=== PATIENT | female | born 1955 | race Caucasian/White ===

== ENCOUNTER 2018-06-12 10:10 | Emergency (ER) | payer OTHER ==
[2018-06-12 10:49] LABS: #Eosinphils 0.3 thou/uL (0.0-0.7); #Lymphocytes 2.1 thou/uL (1.20-3.40); #Monocytes 0.5 thou/uL (0.11-0.59); #Neutrophils 4.1 thou/uL (1.40-6.50); %Basophils 0.5 % (0.0-1.0); %Eosinophils 4.7 % (0.0-10.0); %Lymphocytes 29.8 % (21.0-51.0); %Neutrophils 58.1 % (42.0-75.0); Hemoglobin 12.3 g/dL (12.0-16.0); Mean Corpuscular HGB CONC 32.7 g/dL (32.0-36.0); Mean Corpuscular Hemoglobin 27.6 pg (27.0-31.0); Mean Corpuscular Volume 84.4 fL (78.0-98.0); Mean Platelet Volume 7.2 fL (7.4-10.4); Platelet Count 345 thou/uL (130-400); RBC Distribution Width 13.3 % (11.5-14.5); Red Blood Cell (RBC) Count 4.47 mill/uL (4.20-5.40)
[2018-06-12 11:24] LABS: ALT (SGPT) Less than 7 U/L (8-55); AST (SGOT) 14 U/L (5-34); Albumin 3.7 g/dL (3.5-5.0); Alkaline Phosphatase 85 U/L (40-150); Anion Gap 12 mmol/L (10-20); BUN (Urea Nitrogen) 9 mg/dL (9.8-20.1); Bilirubin, Total 0.2 mg/dL (0.2-1.2); Calc. Creatinine Clearance 0 mL/min (70-130); Calcium 9.4 mg/dL (7.8-10.44); Carbon Dioxide 25 mmol/L (22-29); Chloride 106 mmol/L (98-107); Estimated GFR-MDRD 66; Globulin 4.1 g/dL (2.4-3.5); Glucose 94 mg/dL (70-105); Potassium 3.2 mmol/L (3.5-5.1); Protein, Total 7.8 g/dL (6.0-8.3); Sodium 140 mmol/L (136-145)
--- NOTE | 2018-06-12 11:34 | RAD ---
PORTABLE CHEST ONE VIEW: Date: 06-12-18 Time: 10:41 a.m. History: Bilateral feet swelling. Chest pain. FINDINGS: Comparison is made with 03-20-16. There is continued elevation of the left hemidiaphragm. The heart size is normal. No focal areas of c onsolidation, pneumothoraces or pleural effusions are seen. IMPRESSION: No radiographic evidence of acute cardiopulmonary process. POS: [facility]
[2018-06-12] MEDS ORDERED: Furosemide 40 MG TAB ONE (12:03)
--- NOTE | 2018-06-15 13:25 | EKG ---
Test Reason : BILAT LE SWELLING Blood Pressure : / mmHG Vent. Rate : 088 BPM Atrial Rate : 088 BPM P-R Int : 140 ms QRS Dur : 074 ms QT Int : 326 ms P-R-T Axes : 036 007 055 degrees QTc Int : 394 ms Normal sinus rhythm Nonspecific ST abnormality Abnormal ECG Confirmed by BRIGIDO QUINTANILLA ([id number]), technical writer and editor KAYLEE GARCÍA ([id number] on 06/15/2018 1:24:26 PM Referred By: SOCORRO Confirmed By:BRIGIDO QUINTANILLA
== END 2018-06-12 12:16 | disposition home or self-care (01) ==
LOC: ERS 10:10
DX: R60.0 Localized edema (principal); F17.210 Nicotine dependence, cigarettes, uncomplicated; N63.0 Unspecified lump in unspecified breast
CPT/HCPCS: 36415; 71045; 80053; 83880; 85025; 93005

== ENCOUNTER 2019-05-14 19:56 | Inpatient (IN) | payer OTHER ==
[~2019-05-14 19:56] MED LIST: ISOVUE-370 76%-LOCM 1 ML ONE
[2019-05-14] MEDS ORDERED: Ondansetron PF 4 MG/2 ML Vial ONE (21:23)
[2019-05-14] MEDS ORDERED: Morphine 4 MG/ML VIAL ONE (21:23)
[2019-05-14 21:29] LABS: #Eosinphils 0.1 thou/uL (0.0-0.7); #Lymphocytes 1.9 thou/uL (1.20-3.40); #Monocytes 0.5 thou/uL (0.11-0.59); #Neutrophils 5.6 thou/uL (1.40-6.50); %Basophils 0.2 % (0.0-1.0); %Lymphocytes 23.2 % (21.0-51.0); %Monocytes 5.7 % (0.0-10.0); %Neutrophils 69.8 % (42.0-75.0); Hemoglobin 12.7 g/dL (12.0-16.0); Mean Corpuscular HGB CONC 33.6 g/dL (32.0-36.0); Mean Corpuscular Hemoglobin 29.7 pg (27.0-31.0); Mean Corpuscular Volume 88.3 fL (78.0-98.0); Mean Platelet Volume 7.2 fL (7.4-10.4); Platelet Count 173 thou/uL (130-400); RBC Distribution Width 15.5 % (11.5-14.5); Red Blood Cell (RBC) Count 4.28 mill/uL (4.20-5.40)
--- NOTE | 2019-05-14 21:33 | RAD ---
Chest one view HISTORY: Chest pain. COMPARISON: 06/12/2018. FINDINGS: Cardiac silhouette is magnified by projection. Left hemidiaphragm is elevated with atelecta sis at the left lung base. Patient is slightly rotated rightward. Calcification within the aorta. Left internal jugular Port-A-Cath. No lobar consolidation or evidence of pneumothorax. IMPRESSION: Mild left basilar atelectasis. No active cardiopulmonary abnormalities are reliably demon strated. Atherosclerosis.
[2019-05-14 21:50] LABS: ALT (SGPT) 29 U/L (8-55); AST (SGOT) 26 U/L (5-34); Albumin 4.2 g/dL (3.4-4.8); Alkaline Phosphatase 85 U/L (40-150); Anion Gap 16 mmol/L (10-20); BUN (Urea Nitrogen) 11 mg/dL (9.8-20.1); Bilirubin, Total 0.4 mg/dL (0.2-1.2); CK (CPK) 70 U/L (29-168); Calc. Creatinine Clearance 0 mL/min (70-130); Calcium 9.6 mg/dL (7.8-10.44); Carbon Dioxide 22 mmol/L (23-31); Chloride 104 mmol/L (98-107); Estimated GFR-MDRD 56; Glucose 111 mg/dL (80-115); Potassium 3.8 mmol/L (3.5-5.1); Protein, Total 7.2 g/dL (6.0-8.3); Sodium 138 mmol/L (136-145)
[2019-05-14] MEDS ORDERED: Fentanyl 100 MCG/2 ML VIAL ONE (22:56)
--- NOTE | 2019-05-14 23:14 | CT ---
CT arteriogram chest with IV contrast and 3-D imaging HISTORY: Chest pain. Dyspnea. FINDINGS: Extensive cylindrical filling defects throughout the pulmonary arteries to each lobe. The l argest defect extends into the right pulmonary artery. Mild atelectasis at the lung bases. Right breast is surgically absent. No pleural fluid. Small hiatal hernia. IMPRESSION: Extensive bilateral pulmonary emboli with overall large clot burden. Small hiatal hernia. Findings were called to Dr. Wyatt in the emergency department with a call originally placed at 2304 hours. Code CR.
[2019-05-15] MEDS ORDERED: Enoxaparin Sodium 100 MG/ML SYRINGE ONE ×3 (01:03→08:14)
[2019-05-15] MEDS ORDERED: Aspirin 325 MG TAB ONE (01:03)
--- NOTE | 2019-05-15 02:12 | PDOC.FPRHP ---
- History of Present Illness Chief Complaint: chest pain with deep breaths History of Present Illness: 63 y/o F with a PMHx of breast cancer undergoing chemotherapy, presents to the ED after having gradually worsening chest pain with deep inspirations today (05/14 ), causing her to become SOB. Pt states she felt weak and light headed, when she became very sweaty early today. She feels pain in her right chest with cough, and deep breathing. Pt states she has LE swelling in her bilateral ankles , cramping in her feet, and chronic back pain. Pt denies any pain in her calf muscles. Denies any palpitations, N/V/D/Abd pain or headache. Pt came to the ED and CTA discovered bilateral extensive Pulmonary Emboli. - Allergies/Adverse Reactions Allergies Allergy/AdvReac Type Severity Reaction Status Date / Time No Known Allergies Allergy Unverified 05/15/19 02:35 - History PMHx: Breast Cancer Dx in Jun 2018. Seasonal Allergies. PSHx: Right Mastectomy FHx: mother: uterine CA; Father: [place] Social: Quit smoking cigarettes in Jun 2018. Smoked for for 40 years. Denies etoh or drug use. Drinks many Mountain Dew's. - Review of Systems General: reports: fatigue. denies: fever/chills Eyes: denies: eye pain, vision changes ENT: reports: rhinorrhea. denies: nasal congestion Respiratory: reports: cough, shortness of breath. denies: congestion Cardiovascular: reports: chest pain, edema. denies: palpitation Gastrointestinal: denies: nausea, vomiting, diarrhea, abdominal pain Genitourinary: denies: incontinence, dysuria Skin: denies: rashes, lesions, jaundice Musculoskeletal: reports: pain (chronic back pain) Neurological: reports: weakness (generalized). denies: numbness, syncope, seizure Psychological: reports: anxiety (feeling anxious about the situation) - Vital signs BP: 118/83 HR: 100 RR: 23 Tmax: Pox: 96% on RA Wt: - Physical Exam Constitutional: NAD, awake, alert and oriented, well developed HEENT: normocephalic and atraumatic, PERRLA, EOMI, conjunctiva clear, no scleral icterus, grossly normal vision, grossly normal hearing, MMM, oropharynx clear Neck: supple, FROM, trachea midline, no JVD Heart: RRR, normal S1/S2, no murmurs/rubs/gallops, pulses present, other (no pitting edema) Lungs: CTAB, no respiratory distress, good air movement, no rales/rhonchi, no wheezing, no retractions Abdomen: soft, non-tender, bowel sounds present, no masses/distention, no hernias Musculoskeletal: normal structure, normal tone, ROM grossly normal Neurological: no focal deficit, CN II-XII intact, normal sensation Skin: no rash/lesions, good turgor, capillary refill <2 seconds, no jaundice Heme/Lymphatic: no unusual bruising or bleeding, no purpura -Heme/Lymphatic: petechia overlying bilateral LE Psychiatric: normal mood and affect, good judgment and insight, intact recent and remote memory FMR H&P: Results - Labs Result Diagrams: 05/14/19 21:19 05/14/19 21: Lab results: WBC 8.0 thou/uL (4.8-10.8) 05/14/19 21:19 Hgb 12.7 g/dL (12.0-16.0) 05/14/19 21:19 Hct 37.8 % (36.0-47.0) 05/14/19 21:19 MCV 88.3 fL (78.0-98.0) 05/14/19 21:19 Plt Count 173 thou/uL (130-400) 05/14/19 21:19 Neutrophils % 69.8 % (42.0-75.0) 05/14/19 21:19 Sodium 138 mmol/L (136-145) 05/14/19 21:19 Potassium 3.8 mmol/L (3.5-5.1) 05/14/19 21:19 Chloride 104 mmol/L (98-107) 05/14/19 21:19 Carbon Dioxide 22 mmol/L (23-31) L 05/14/19 21:19 BUN 11 mg/dL (9.8-20.1) 05/14/19 21:19 Creatinine 1.01 mg/dL (0.6-1.1) 05/14/19 21:19 Glucose 111 mg/dL (80-115) 05/14/19 21:19 Calcium 9.6 mg/dL (7.8-10.44) 05/14/19 21:19 Total Bilirubin 0.4 mg/dL (0.2-1.2) 05/14/19 21:19 AST 26 U/L (5-34) 05/14/19 21:19 ALT 29 U/L (8-55) 05/14/19 21:19 Alkaline Phosphatase 85 U/L (40-150) 05/14/19 21:19 Creatine Kinase 70 U/L (29-168) 05/14/19 21:19 B-Natriuretic Peptide 10.3 pg/mL (0-100) 05/14/19 21:19 Serum Total Protein 7.2 g/dL (6.0-8.3) 05/14/19 21:19 Albumin 4.2 g/dL (3.4-4.8) 05/14/19 21:19 Laboratory Tests 05/14/19 21:19 D-Dimer 16.80 H - Radiology Interpretation Other Status: report reviewed by me (CTA chest: extensive B pulmonary emboli with overall large clot burden. Small Hiatal Hernia) Chest x-ray Status: report reviewed by me (mild L- basilar atelectasis) FMR H&P: A/P - Problem List (1) Bilateral pulmonary embolism Current Visit: Yes Status: Acute Priority: High Code(s): I26.99 - OTHER PULMONARY EMBOLISM WITHOUT ACUTE COR PULMONALE (2) Breast cancer Current Visit: Yes Status: Acute Qualifiers: Breast location: unspecified site of breast Patient sex: female Laterality: right Assessment and Plan: s/p Right mastectomy (3) Hiatal hernia Current Visit: Yes Status: Acute Code(s): K44.9 - DIAPHRAGMATIC HERNIA WITHOUT OBSTRUCTION OR GANGRENE - Plan 63 y/o F admitted to inpatient tele for extensive bilateral pulmonary emboli. 1. Bilateral Pulmonary Emboli - Most likely secondary to hypercoaguable state from patient's breast cancer status and immobility - Therapeutic lovenox of 1 mg/kg BID SC - Monitor vitals closely - No prior history or DVT or PE - No clinical evidence of DVT 2. Breast Cancer - Dr. Moore is pt's oncologist. Dr. Gay is pt's breast surgeon. - s/p Right mastectomy - Currently on chemotherapy. Last dose was Sunday 05/06. She receives chemo weekly, but was unable to get chemo this week. 3. Radiographic evidence of small hiatal hernia - Stable, not causing pain or symptoms Code Status: Full Code DVT Ppx: therapeutic lovenox Diet: regular diet Disposition/LOS: Stable Pt admitted to in patient tele for anticipated greater than 2 midnights FMR H&P: Upper Level - Pertinent history 63 yo female with known history of breast cancer s/p mastectomy presents for evaluation of chest pain. Patient reports pain with deep inspirations. In ED, d- dimer was elevated and CTA showed bilateral PE. Please see commander internal affairs note above for further information. General: Female appears older than stated age, NAD HEENT: Moist mucous membranes CV: RRR, no murmurs Respiratory: CTA-bilaterally, no wheezing. Pain with deep inspiration Abdomen: Soft, nontender, no distention Normoactive BS Extremities: Moving all four symmetrically, no edema Neuro: No focal deficits Psych: A&O x3. Responds appropriately - Plan Date/Time: 05/15/19 3614 I, Carlton Carrasquillo MD, have evaluated this patient and agree with findings/ plan as outlined by commander internal affairs resident. Pertinent changes/additions are listed here. 1. Bilateral PE - Therapeutic Lovenox - Will need transition to oral anticoagulation - Will order ECHO to determine extent of clot burden on CV system 2. Breast Cancer - s/p mastectomy - Will need outpatient follow up of chemo regimen 3. Hx of Tobacco Abuse - Previous 40 year pack history - Successful cessation for 9 months - Recommend continued cessation PCP: ANDRE CODE STATUS: FULL CODE Disposition: Stable, will admit for further evaluation and management. Addendum - Attending - Attending Attestation Date/Time: 05/15/19 0073 I personally evaluated the patient and discussed the management with Dr. Jung. I agree with the History, Examination, Assessment and Plan documented above with any addition or exceptions noted below. The patient came in overnight with chest pain made worse with deep inspiration and coughing. She is undergoing treatment for breast cancer. The patient has been found to have PE. She is receiving therapeutic lovenox. She is stable this morning and feeling better. Will transition to eliquis.
[2019-05-15] MEDS ORDERED: Ondansetron ODT 4 MG TAB PO PRN (07:40)
[2019-05-15] MEDS ORDERED: Morphine 2 MG/ML SYRINGE SLOW IVP PRN (07:48)
[2019-05-15 07:58] VITALS: BMI 27.8
[2019-05-15] MEDS ORDERED: Enoxaparin Sodium 100 MG/ML SYRINGE SC SCH (09:00)
[2019-05-15] MEDS: Calcium Carbonate 500 MG TAB PO SCH (10:35)
[2019-05-15] MEDS: Anastrozole 1 MG TAB PO SCH (10:36)
[2019-05-15] MEDS: Gabapentin 100 MG CAP PO SCH ×2 (10:36→21:37)
[2019-05-15] MEDS: Apixaban 5 MG TAB PO SCH (21:37)
--- NOTE | 2019-05-16 05:30 | PDOC.FM ---
- Subjective Subjective: Patient doing well this morning. Reports that her SOB has markedly improved since admission. She also states that the chest wall pain she would have when she moved has also improved. She has been uncomfortable in bed with her neck, but reports that this is a chronic problem she has at home. - Objective Vital Signs & Weight: Vital Signs (12 hours) Temp Pulse Resp BP Pulse Ox 05/16/19 04:00 98.2 F 86 20 121/71 93 L 05/16/19 00:00 99 F 89 18 117/65 95 05/15/19 20:00 100.1 F H 86 20 112/68 95 Weight Weight 88 kg Result Diagrams: 05/14/19 21:19 05/14/19 21:19 EKG Reviewed by me: Yes (sinus 60s-70s) Phys Exam - Physical Examination Constitutional: NAD HEENT: moist MMs, sclera anicteric Neck: supple, full ROM Respiratory: no wheezing, no rhonchi Cardiovascular: RRR, no significant murmur Gastrointestinal: soft, non-tender Musculoskeletal: no edema, pulses present Neurological: normal sensation, moves all 4 limbs Lymphatic: no nodes Psychiatric: normal affect, A&O x 3 Skin: normal turgor, cap refill <2 seconds Dx/Plan (1) Bilateral pulmonary embolism Code(s): I26.99 - OTHER PULMONARY EMBOLISM WITHOUT ACUTE COR PULMONALE Status : Acute (2) Breast cancer Status: Acute Qualifiers: Breast location: unspecified site of breast Patient sex: female Laterality: right (3) Hiatal hernia Code(s): K44.9 - DIAPHRAGMATIC HERNIA WITHOUT OBSTRUCTION OR GANGRENE Status: Acute - Plan Plan: 63 y/o F admitted to inpatient tele for extensive bilateral pulmonary emboli. #Bilateral Pulmonary Emboli - Likely 2/2 hypercoaguable state from patient's breast cancer status and immobility - Continue Apixaban 10mg PO BID - vss, with 93-95% on RA, continue to monitor - No prior history or DVT or PE - No clinical evidence of DVT - patient had chest wall pain upon admission and was started on 100mg gabapentin po bid, reports improvement of pain - echo today to assess for right heart strain #Breast Cancer - Oncologist: Dr. Moore - Breast Surgeon: Dr. Gay - s/p Right mastectomy - Currently on chemotherapy. Last dose was Sunday 05/06. She receives chemo weekly, but was unable to get chemo this week. #Radiographic evidence of small hiatal hernia - Stable -patient denies pain/symptoms at this time Code Status: Full Code DVT Ppx: therapeutic lovenox Diet: regular diet Dispo: Inpatient tele for continued therapeutic lovenox, echo, and monitoring of vital signs Addendum - Attending - Attending Attestation Date/Time: 05/16/191933 I personally evaluated the patient and discussed the management with Dr. Oden. I agree with the History, Examination, Assessment and Plan documented above with any addition or exceptions noted below. The patient is doing well. Will ambulate pt and check O2 sats. Continue eliquis. Echo has been done but result is pending this morning.
[2019-05-16] MEDS: Anastrozole 1 MG TAB PO SCH (08:57)
[2019-05-16] MEDS: Potassium Chloride 20 MEQ TAB PO SCH (08:57)
[2019-05-16] MEDS: Calcium Carbonate 500 MG TAB PO SCH (08:57)
[2019-05-16] MEDS: Gabapentin 100 MG CAP PO SCH ×2 (08:58→19:55)
[2019-05-16] MEDS: Apixaban 5 MG TAB PO SCH ×2 (08:59→19:54)
--- NOTE | 2019-05-17 05:13 | PDOC.FM ---
- Subjective Subjective: Patient doing well this morning. Reports her SOB and chest wall pain has improved. Agreeable to current plan of care. - Objective Vital Signs & Weight: Vital Signs (12 hours) Temp Pulse Resp BP Pulse Ox 05/17/19 03:58 98.8 F 88 16 116/59 L 96 05/16/19 20:00 99.2 F 84 18 119/58 L 95 Weight Weight 88 kg I&O: 05/15/19 05/16/19 05/17/19 06:59 06:59 06:59 Intake Total 250 Balance 250 Result Diagrams: 05/14/19 21:19 05/14/19 21:19 Phys Exam - Physical Examination Constitutional: NAD HEENT: moist MMs, sclera anicteric Neck: supple, full ROM Respiratory: no wheezing, clear to auscultation bilateral Cardiovascular: RRR, no significant murmur Gastrointestinal: soft, non-tender Musculoskeletal: no edema, pulses present Neurological: normal sensation, moves all 4 limbs Lymphatic: no nodes Psychiatric: normal affect, A&O x 3 Skin: normal turgor, cap refill <2 seconds Dx/Plan (1) Bilateral pulmonary embolism Code(s): I26.99 - OTHER PULMONARY EMBOLISM WITHOUT ACUTE COR PULMONALE Status : Acute (2) Breast cancer Status: Acute Qualifiers: Breast location: unspecified site of breast Patient sex: female Laterality: right (3) Hiatal hernia Code(s): K44.9 - DIAPHRAGMATIC HERNIA WITHOUT OBSTRUCTION OR GANGRENE Status: Acute - Plan Plan: 63 y/o F admitted to inpatient tele for extensive bilateral pulmonary emboli. #Bilateral Pulmonary Emboli - Likely 2/2 hypercoaguable state from patient's breast cancer status and immobility - Continue Apixaban 10mg PO BID - vss, with 95-96% on RA, continue to monitor - No prior history or DVT or PE - No clinical evidence of DVT - patient had chest wall pain upon admission and was started on 100mg gabapentin po bid, reports improvement of pain - echo: EF 60-65%, trace mitral regurgitation, trace tricuspid regurgitation - walking O2 test today #Breast Cancer - Oncologist: Dr. Moore - Breast Surgeon: Dr. Gay - s/p Right mastectomy - Currently on chemotherapy. Last dose was Sunday 05/06. She receives chemo weekly, but was unable to get chemo this week. #Radiographic evidence of small hiatal hernia - Stable -patient denies pain/symptoms at this time Code Status: Full Code DVT Ppx: therapeutic lovenox Diet: regular diet Dispo: Inpatient tele for continued therapeutic lovenox, walking O2 today, likely d/c later today Addendum - Attending - Attending Attestation Date/Time: 05/17/19 0538 I personally evaluated the patient and discussed the management with Dr. Oden. I agree with the History, Examination, Assessment and Plan documented above with any addition or exceptions noted below. Pt is feeling better. Echo reviewed and shows preserved EF. Will d/c on eliquis.
[2019-05-17] MEDS: Anastrozole 1 MG TAB PO SCH (09:08)
[2019-05-17] MEDS: Potassium Chloride 20 MEQ TAB PO SCH (09:08)
[2019-05-17] MEDS: Apixaban 5 MG TAB PO SCH (09:08)
[2019-05-17] MEDS: Calcium Carbonate 500 MG TAB PO SCH (09:09)
[2019-05-17] MEDS: Gabapentin 100 MG CAP PO SCH (09:09)
[2019-05-17 11:05] VITALS: BP 113/56; TEMP 97.8
--- NOTE | 2019-05-18 17:12 | DIS ---
DATE OF ADMISSION: 05/15/2019 DATE OF DISCHARGE: 05/17/2019 ADMITTING RESIDENT: Lidia Jung DO ADMITTING ATTENDING: Francis Carvalho MD DISCHARGE RESIDENT: Kina Oden MD DISCHARGE ATTENDING: MD Silvestre CONSULTS: Walking program. PROCEDURES: None. IMAGING: Chest x-ray, mild left basilar atelectasis. No active cardiopulmonary abnormalities are reliably demonstrated. CTA: Extensive bilateral pulmonary emboli with overall large clot burden. Small hiatal hernia. Echo, EF 60% to 65%, trace mitral regurgitation, structurally normal aortic valve with no significant stenosis or regurgitation, trace tricuspid regurgitation. PRIMARY DIAGNOSIS: Bilateral pulmonary emboli. SECONDARY DIAGNOSES: Breast cancer, radiographic evidence of small hiatal hernia. DISCHARGE MEDICATIONS: 1. Anastrozole 1 mg p.o. q.a.m. 2. Apixaban 10 mg p.o. b.i.d. for 5 days. 3. Apixaban 5 mg p.o. b.i.d. for following 20 days. 4. Calcium 1500 mg p.o. q.a.m. 5. Vitamin D3 of 5000 units p.o. daily. 6. Nexium 40 mg 24 p.o. daily. 7. Gabapentin 100 mg p.o. b.i.d. x30 days. 8. Potassium chloride 20 mEq p.o. daily. Discontinued medications: 1. Morphine. 2. Zofran. 3. Protonix. HISTORY OF PRESENT ILLNESS/HOSPITAL COURSE: The patient with breast cancer, undergoing chemotherapy, presented to the ED with gradually worsening chest pain with deep inspirations and shortness of breath. In the ED, she was 76% on room air. She was found to have bilateral PE and started on therapeutic Lovenox. The following day, she was transitioned to 10 mg of Eliquis p.o. b.i.d. Throughout the hospitalization, she continued to maintain adequate oxygenation on room air. Her oxygenation was tested with ambulation and shown to be greater than 92% on room air. On admission she was also complaining of chest wall pain, which was relieved with 100mg gabapentin BID and this was prescribed on discharge. She was discharged in stable condition with instructions to continue 10 mg of Eliquis b.i.d. for the next 5 days, then 5 mg Eliquis b.i.d. for the next 20 days after that, or until she follows up with the PCP and the PCP decides that she has been adequately treated and it can be discontinued. DISPOSITION: Stable. DISCHARGE INSTRUCTIONS: 1. Location: Home. 2. Diet: Heart healthy. 3. Activity: Cardiopulmonary limitations until re-evaluated by her PCP. 4. Followup: Follow up with PCP within 7 days. Please note, newly added Andriaquis, instructions as noted above. Please note, change in dosing after five days. Job ID: [id number] MTDD
== END 2019-05-17 14:10 | disposition home or self-care (01) | DRG 176 ==
LOC: ERS 19:56 → ERHOLD 05-15 00:01 → 2NO 05-15 09:19
PROVIDERS: ADMIT Student in an Organized Health Care Education/Training Program; ATTEND Student in an Organized Health Care Education/Training Program
DX: I26.99 Other pulmonary embolism without acute cor pulmonale (principal); J98.11 Atelectasis; D68.59 Other primary thrombophilia; K44.9 Diaphragmatic hernia without obstruction or gangrene; C50.919 Malignant neoplasm of unspecified site of unspecified female breast; F41.9 Anxiety disorder, unspecified; Z90.11 Acquired absence of right breast and nipple; Z87.891 Personal history of nicotine dependence
CPT/HCPCS: 71045; 71275; 80048; 80053; 82550; 83880; 84484; 85025; 85027; 85379; 93005; 93306; 96361; 96372; 96374; 96375; J1650; J2270; J2405; J3010; Q9966

== ENCOUNTER 2019-12-08 12:28 | Outpatient (CLI) | payer OTHER ==
[~2019-12-08 12:28] MED LIST changes: -ISOVUE-370 76%-LOCM 1 ML ONE; +Iopamidol 370 76% 100 ML VIAL ONE
--- NOTE | 2019-12-08 14:44 | CT ---
CT ABDOMEN AND PELVIS WITH AND WITHOUT IV CONTRAST: Date: 12/08/2019 HISTORY: Hematuria and hydronephrosis. FINDINGS: The lung bases are clear. A small hiatal hernia is present. There is an 8 mm cyst in the medial segme nt of the left lobe of the liver. The spleen, pancreas, and adrenal glands are normal. There is an 8 mm calculus at the right UPJ with right-sided hydronephrosis. A tiny calculus is also s een in the inferior pole of the right kidney. Bilateral renal cysts are seen. No calculi seen in the left kidney, left ureter, or the urinary bladder. No left-sided hydroureteronephrosis seen. There are bilateral renal cysts. No free air, free fluid, or lymphadenopathy noted in the abdomen or pelvis. There are vascular calcif ications without evidence of aneurysmal dilatation of the abdominal aorta. There are degenerative kenny nges in the spine. The small bowel loops are not abnormally dilated. A normal appearing appendix is present. There is fe endy material in the colon. Fibroid uterus is present. IMPRESSION: 1. Small hiatal hernia. 2. Small cyst in the liver. 3. Bilateral renal cysts. 4. Obstructing 8 mm right UPJ calculus. 5. Tiny right renal calculus. 6. Fibroid uterus. POS: [facility]
== END 2019-12-08 12:29 | disposition home or self-care (01) ==
LOC: CT 12:28
PROVIDERS: ATTEND Emergency Medicine
DX: N13.1 Hydronephrosis with ureteral stricture, not elsewhere classified (principal); R31.9 Hematuria, unspecified; K44.9 Diaphragmatic hernia without obstruction or gangrene; K76.89 Other specified diseases of liver; N28.1 Cyst of kidney, acquired; N13.2 Hydronephrosis with renal and ureteral calculous obstruction
CPT/HCPCS: 74178; 82565; Q9967

== ENCOUNTER 2019-12-22 07:20 | Outpatient (CLI) | payer OTHER ==
[2019-12-22 12:29] LABS: Bacteria/HPF 4+ HPF (None Seen); Bilirubin Negative (Negative); Blood, Urine 1+ (Negative); Clarity Extra Turbid (Clear); Glucose, Urine (Dipstick) Normal (Negative); Leukocyte 500 Leu/uL (Negative); Nitrite 1+ (Negative); Protein, Urine (Dipstick) 30 mg/dL (Neg-Trace); RBC/HPF 21-50 HPF (0-3); Urobilinogen Normal mg/dL (Less than 2); WBC/HPF Greater than 50 HPF (0-3)
== END 2019-12-22 07:21 | disposition home or self-care (01) ==
LOC: LABBT 07:20
PROVIDERS: ATTEND Urology
DX: Z01.812 Encounter for preprocedural laboratory examination (principal); N20.1 Calculus of ureter
CPT/HCPCS: 81001; 87077; 87086; 87186

== ENCOUNTER 2019-12-25 05:51 | Day surgery (SDC) | payer OTHER ==
[2019-12-22 10:25] VITALS: BMI 31.9
[2019-12-25] MEDS ORDERED: Iothalamate Meglumine 60% 30 ML VIAL FS ONE (07:11)
[2019-12-25] MEDS ORDERED: Fentanyl 100 MCG/2 ML VIAL ONE (07:15)
[2019-12-25] MEDS ORDERED: Levofloxacin 500 mg/D5W 100 ml Premix Bag ONE (07:19)
[2019-12-25] MEDS ORDERED: Scopolamine 1.5 mg/72 hour Patch ONE (07:19)
[2019-12-25] MEDS ORDERED: Famotidine/PF 20 mg/2ml Vial ONE (07:19)
[2019-12-25] MEDS ORDERED: Ondansetron PF 4 MG/2 ML Vial ONE (07:19)
[2019-12-25] MEDS ORDERED: Sodium Chloride 0.9% 100 ML ONE (07:28)
[2019-12-25] MEDS ORDERED: cefTRIAXone\\ROCEPHIN 1 GM VIAL ONE (07:28)
[2019-12-25] MEDS ORDERED: Labetalol HCl 100 MG/20 ML VIAL ONE (08:55)
[2019-12-25] MEDS ORDERED: Oxybutynin 5 MG TAB ONE (09:10)
[2019-12-25] MEDS ORDERED: Phenazopyridine HCl 97.5 MG TABLET ONE ×2 (09:10)
[2019-12-25] MEDS ORDERED: Succinylcholine Chloride 20 MG/ML 10 ml SYRINGE FS ONE (09:12)
[2019-12-25] MEDS ORDERED: Dexamethasone 20 MG/5 ML VIAL ONE (09:12)
[2019-12-25] MEDS ORDERED: EPHEDRINE 25 MG/5 ML SYRINGE ONE (09:12)
[2019-12-25] MEDS ORDERED: PROPOFOL 200 MG/20 ML VIAL ONE (09:12)
[2019-12-25] MEDS ORDERED: Esmolol 100 MG/10 ML VIAL ONE (09:12)
[2019-12-25] MEDS ORDERED: Rocuronium Bromide 10 MG/ML (10ML VIAL) ONE (09:12)
[2019-12-25] MEDS ORDERED: Lidocaine 1% PF 5 ML VIAL ONE (09:12)
--- NOTE | 2019-12-25 09:37 | OP ---
DATE OF PROCEDURE: 12/25/2019 SERVICE: Urology. PREOPERATIVE DIAGNOSES: Right ureteropelvic junction stone and renal stone. POSTOPERATIVE DIAGNOSES: Right ureteropelvic junction stone and right renal stone. PROCEDURES PERFORMED: Right ureteroscopy, laser lithotripsy, basket extraction of stone, placement of a 6 x 24 double-J stent. INDICATION FOR PROCEDURE: Mrs. Edwards is a 64-year-old white female who presented to me with incidental findings of a right hydronephrosis and a right 8-mm UPJ stone of an unknown duration. Given the severe hydronephrosis and low probability of stone passage, I recommended definitive stone management with ureteroscopy with all risks and benefits discussed. She has agreed to proceed forward. DESCRIPTION OF PROCEDURE: After identification of armband and verification of consent, the patient was brought back to the operating room, where she underwent general anesthesia with an LMA. She was then placed in a dorsal lithotomy position and prepped and draped in usual sterile fashion. After appropriate time-out, a lubricated 22-Moldovan rigid cystoscope was introduced per urethra into the bladder. The bladder was slightly turbid, which was irrigated out until clear. Attention was turned to the right ureteral orifice which was cannulated with a 0.035 Sensor wire up to the level of renal pelvis. The cystoscope was then removed and a dual-lumen catheter was advanced over the Sensor wire to the level of the mid ureter. An Amplatz Super Stiff wire was then placed through the second lumen up to the level of renal pelvis. The dual-lumen was then removed and the Sensor wire affixed to the drapes as a safety wire. An 11/13 x 28 cm ureteral access sheath was then advanced over the Super Stiff wire up to the level of the proximal ureter at which point, the inner cannula and the Super Stiff wire were then removed leaving the outer sheath and Sensor wire in place as a safety wire. A flexible digital ureteroscope was then passed up through the ureteral access sheath into the proximal ureter at which point the stone was found at the UPJ. Using a 273 micron ball-tip laser fiber, the stone was fragmented into small pieces and then using a 1.9-Moldovan [employer] basket, the fragments were removed for stone analysis. There was a lot of turbidity in the renal pelvis which was irrigated out using a 30 mL syringe attached to the ureteroscope until the renal pelvis was clear. Final inspection of the kidney did not reveal any additional stones over 1 mm in size. I was ultimately satisfied with the appearance of the kidney and with all stone fragment removal, pull-back ureteroscopy was employed. No additional stones were found within the ureter. The ureteroscope and the sheath were then removed. The Sensor wire was then used to guide in a 6 x 24 double-J stent with no string which was advanced over the Sensor wire and positioned fluoroscopically. The wire was removed leaving a good curl in the kidney and a good curl in the bladder. The bladder was then emptied with the cystoscope, which was reintroduced into the bladder and then removed. The patient was then taken out of positioning, awakened, taken to PACU for recovery in stable condition. COMPLICATIONS: None. ESTIMATED BLOOD LOSS: Minimal. RETAINED TUBES AND DRAINS: A 6 x 24 double-J stent on the right. SPECIMENS: Stone for stone analysis. DISPOSITION: The patient will be discharged home and follow up with me in approximately 1 week for cystoscopy and stent removal in the office. Job ID: [id number]
== END 2019-12-25 11:50 | disposition home or self-care (01) ==
LOC: SDC 05:51
PROVIDERS: ATTEND Urology
PROC: 0TF38ZZ Fragmentation in Right Kidney Pelvis, Via Natural or Artificial Opening Endoscopic (ICD-10-PCS; principal; 2019-12-25)
PROC: 0T768DZ Dilation of Right Ureter with Intraluminal Device, Via Natural or Artificial Opening Endoscopic (ICD-10-PCS; principal; 2019-12-25)
DX: N13.2 Hydronephrosis with renal and ureteral calculous obstruction (principal); K21.9 Gastro-esophageal reflux disease without esophagitis; F41.9 Anxiety disorder, unspecified; F32.9 Major depressive disorder, single episode, unspecified; M06.9 Rheumatoid arthritis, unspecified; Z79.01 Long term (current) use of anticoagulants; Z79.899 Other long term (current) drug therapy
CPT/HCPCS: 76000; 82365; 88300; C1769; J0696; J1100; J1956; J2001; J2405; J2704; J3010; J3490; S0028

== ENCOUNTER 2023-01-12 10:53 | Outpatient (CLI) | payer MEDICARE, OTHER | END 2023-01-12 10:54 | disposition home or self-care (01) | LOC: BICRAD 10:53 | PROVIDERS: ATTEND Emergency Medicine | DX: J06.9 Acute upper respiratory infection, unspecified (principal) | CPT/HCPCS: 71046 ==